=== PATIENT | female | born 1990 | race African-American/Black ===

== ENCOUNTER 2016-09-10 07:45 | Emergency (ER) | payer OTHER ==
[2016-09-10] MEDS ORDERED: Ketorolac Tromethamine 60 MG/2 ML VIAL ONE (08:04)
[2016-09-10] MEDS ORDERED: Cyclobenzaprine 10 MG TAB ONE (08:05)
== END 2016-09-10 08:38 | disposition home or self-care (01) ==
LOC: NAV ERS 07:45
DX: S46.812A Strain of other muscles, fascia and tendons at shoulder and upper arm level, left arm, initial encounter (principal); X37.1XXA Tornado, initial encounter
CPT/HCPCS: 96372; J1885

== ENCOUNTER 2018-03-23 12:05 | Emergency (ER) | payer SELFPAY | END 2018-03-23 12:29 | disposition home or self-care (01) | LOC: NAV ERS 12:05 | DX: H60.22 Malignant otitis externa, left ear (principal) | CPT/HCPCS: 99282 ==

== ENCOUNTER 2019-02-09 17:00 | Emergency (ER) | payer SELFPAY ==
[2019-02-09 17:42] LABS: Bilirubin Negative (Negative); Blood, Urine Negative (Negative); Clarity Clear (Clear); Glucose, Urine (Dipstick) Negative (Negative); Leukocyte Trace (Negative); Nitrite Negative (Negative); Protein, Urine (Dipstick) Negative (Neg-Trace); Urobilinogen 0.2 mg/dL (Less than 2)
[2019-02-09] MEDS ORDERED: Ibuprofen 200 MG TAB ONE (17:53)
[2019-02-09 17:57] LABS: Bacteria/HPF 1+ HPF (None Seen); RBC/HPF 0-3 HPF (0-3); Squamous Epithelial 0-3 HPF (0-3); WBC/HPF 0-3 HPF (0-3)
[2019-02-09 17:58] LABS: Pregnancy Test - Urine (BHCG) Negative (Negative); Pregu Control Background? CLEAR/WHITE (CLR/WHITE); Pregu Control Bar Appear? YES (CONTROL BAR)
== END 2019-02-09 18:33 | disposition home or self-care (01) ==
LOC: NAV ERS 17:00
DX: S46.911A Strain of unspecified muscle, fascia and tendon at shoulder and upper arm level, right arm, initial encounter (principal); X50.9XXA Other and unspecified overexertion or strenuous movements or postures, initial encounter
CPT/HCPCS: 81003; 81015; 81025

== ENCOUNTER 2019-04-14 16:36 | Emergency (ER) | payer SELFPAY | END 2019-04-14 17:41 | disposition home or self-care (01) | LOC: NAV ERS 16:36 | DX: J11.1 Influenza due to unidentified influenza virus with other respiratory manifestations (principal) | CPT/HCPCS: 87804; 99283 ==

== ENCOUNTER 2019-10-13 16:24 | Emergency (ER) | payer OTHER, SELFPAY ==
[2019-10-14 11:47] LABS: SARS-CoV-2 MS2 Positive; SARS-CoV-2 N Gene Negative; SARS-CoV-2 S Gene Negative; SARS-CoV-2 by NAA Not Detected (NotDetected); SARS-CoV-2 orf1ab Negative
== END 2019-10-13 17:00 | disposition home or self-care (01) ==
LOC: NAV ERS 16:24
DX: Z20.828 Contact with and (suspected) exposure to other viral communicable diseases (principal)
CPT/HCPCS: 87635; 99283; U0003